=== PATIENT | male | born 1995 | race Two or more races ===

== ENCOUNTER 2023-07-30 08:44 | Emergency (ER) | payer MEDICAID ==
[~2023-07-30] VITALS: Ht 160 cm; Wt 100.5 kg
[2023-07-30 09:36] VITALS: BP 158/94; PULSE 85; RESP 18; TEMP 99.3; O2SAT 96
[2023-07-30] MEDS ORDERED: IBUP-1456 PO (09:36)
== END 2023-07-30 09:48 | disposition home or self-care (01) ==
LOC: ER 08:44
DX: M77.51 Other enthesopathy of right foot and ankle (principal)
CPT/HCPCS: 73610

== ENCOUNTER 2023-08-07 05:52 | Emergency (ER) | payer MEDICAID ==
[~2023-08-07] VITALS: Ht 160 cm; Wt 103.0 kg
[~2023-08-07 05:52] MED LIST: IBUP-1456 PO
[2023-08-07 07:06] LABS: Urine Bacteria NONE SEEN /hpf (None Seen); Urine Blood Negative /uL (Negative); Urine Clarity Clear (Clear); Urine Color Colorless (Yellow); Urine Protein, UAD TRACE (Negative); Urine Specific Gravity 1.016 (1.001-1.035); Urine Urobilinogen Normal (Negative); Urine WBC 1 /hpf (0 - 3); Urine pH 8.5 (5.0-8.0)
[2023-08-07 07:07] LABS: Amphetamine Screen, Urine Neg (NEGATIVE); Barbiturate Scree,Urine Neg (NEGATIVE); Benzodiazephine Screen, Urine Neg (NEGATIVE); Cannabinoid Screen, Urine Pos (NEGATIVE); Cocaine Screen, Urine Neg (NEGATIVE); Opiate Scree,Urine Neg (NEGATIVE); Phencyclidine Screen, Urine Neg (NEGATIVE)
[2023-08-07 07:18] LABS: Basophils # (auto) 0 10 ^3/uL (0-0.2); Basophils % (auto) 0.6 % (0.0-2.0); Eosinophils # (auto) 0.1 10 ^3/uL (0-0.8); Eosinophils % (auto) 1.8 % (0.0-7.0); Hematocrit 46.8 % (41.0-53.0); Hemoglobin 16.4 g/dL (13.5-17.5); Lymphocytes # (auto) 2.3 10 ^3/uL (0.4-5.4); Lymphocytes % (auto) 32.1 % (10.0-50.0); Mean Corpuscular Hemoglobin 31.6 pg (28.0-32.0); Mean Corpuscular Hgb Conc. 35.1 g/dL (32.0-36.0); Monocytes # (auto) 0.5 10 ^3/uL (0-1.3); Monocytes % (auto) 7.7 % (0.0-12.0); Neutrophils # (auto) 4.1 10 ^3/uL (1.6-8.6); Neutrophils % (auto) 57.8 % (37.0-80.0); Nucleated Red Blood Cells % 0.1 %; Red Cell Distribution Width 13.5 % (11.8-14.3)
[2023-08-07] MEDS ORDERED: SODIUM CHLORIDE 0.9% 1,000 ML IV ONE (07:30)
[2023-08-07] MEDS ORDERED: MAALOX PLUS or MAALOX 30 ML PO ONE (07:30)
[2023-08-07] MEDS ORDERED: PANTOPRAZOLE 40 MG TAB PO ONE (07:30)
[2023-08-07] MEDS ORDERED: DONNATAL 5ml ORAL Elix (BELLADONNA ALK-PHENOBARB) PO ONE (07:30)
[2023-08-07 07:31] LABS: Alanine Aminotransferase 33 U/L (7-40); Albumin 4.6 g/dL (3.2-4.8); Alkaline Phosphatase 76 U/L (46-116); Anion Gap 7 (5-15); Aspartate Aminotransferase 22 U/L (13-40); BUN/Creatinine Ratio 7.8 (10.0-20.0); Blood Urea Nitrogen 7 mg/dL (9-23); Carbon Dioxide 28 mmol/L (20-30); Chloride 103 mmol/L (98-107); Glucose 94 mg/dL (74-106); Lipase 45 U/L (12-53); Potassium 3.7 mmol/L (3.5-5.1); Sodium 138 mmol/L (136-145)
[2023-08-07 07:32] LABS: Bilirubin, Total 0.4 mg/dL (0.2-1.0); Total Protein 7.2 g/dL (5.7-8.2)
[2023-08-07 07:51] LABS: Blood Alcohol < 3.0 mg/dL (<10)
[2023-08-07] MEDS ORDERED: IOHEXOL 300 MG/ML 100ML BOTTLE IJ ONE (08:26)
[2023-08-07] MEDS ORDERED: PROC10TA6 PO (09:50)
[2023-08-07] MEDS ORDERED: DIPH25CA66 PO (09:50)
[2023-08-07] MEDS ORDERED: PANT1INJ3 IV ×2 (09:50)
[2023-08-07 10:15] VITALS: BP 154/70; PULSE 78; RESP 17; TEMP 98; O2SAT 97
[2023-08-07] MEDS ORDERED: PANT40TA2 PO (10:25)
== END 2023-08-07 10:33 | disposition home or self-care (01) ==
LOC: ER 05:52
DX: R11.2 Nausea with vomiting, unspecified (principal); R10.84 Generalized abdominal pain; K76.0 Fatty (change of) liver, not elsewhere classified; F17.210 Nicotine dependence, cigarettes, uncomplicated; Z79.1 Long term (current) use of non-steroidal anti-inflammatories (NSAID)
CPT/HCPCS: 36415; 74177; 80053; 80307; 80320; 81001; 83690; 83735; 85025; 99285; Q9967